=== PATIENT | female | born 1960 | race Two or more races ===

== ENCOUNTER 2018-02-19 21:39 | Emergency (ER) | payer OTHER ==
[~2018-02-19] VITALS: Ht 157.5 cm; Wt 46.3 kg
[2018-02-19 21:47] VITALS: BP 151/79
--- NOTE | 2018-02-19 23:16 | NUR ---
CALL FROM ADMITTING STATING "PT LEFT".
== END 2018-02-19 23:17 | disposition left against medical advice (07) ==
LOC: ER 21:42
DX: R10.13 Epigastric pain (principal); Z90.49 Acquired absence of other specified parts of digestive tract; Z53.21 Procedure and treatment not carried out due to patient leaving prior to being seen by health care provider
CPT/HCPCS: A4606; Z7610